=== PATIENT | female | born 2000 | race Caucasian/White ===

== ENCOUNTER 2019-06-05 15:56 | Emergency (ER) | payer OTHER ==
[~2019-06-05] VITALS: Ht 170.2 cm; Wt 114.8 kg
[~2019-06-05 15:56] MED LIST: BUDESONIDE0.5 MG/2 M IH; CLARINEX-D 11 BOTTLE PO; MUCINEX DM1 TAB.SR . PO; PROVENTIL3 ML/2.5 M IH; ZITHROMAX200 MG PO
== END 2019-06-05 20:24 | disposition home or self-care (01) ==
LOC: ER 15:56
DX: J06.9 Acute upper respiratory infection, unspecified (principal); H60.8X2 Other otitis externa, left ear